=== PATIENT | male | born 1955 | race Caucasian/White ===

== ENCOUNTER 2020-03-16 14:53 | Inpatient (IN) | payer OTHER ==
[~2020-03-16] VITALS: Ht 165.1 cm; Wt 103.0 kg
[2020-03-16 15:01] VITALS: Ht 165.1 cm; Wt 103.0 kg
--- NOTE | 2020-03-16 15:06 | NUR ---
PT HOB ELEVATED FOR SAFETY, DURING POSITION CHANGE PT STS "I'M GOING TO THROW UP." RED EMESIS NOTED APPROX 100ML.
--- NOTE | 2020-03-16 15:13 | NUR ---
PT BIBA FROM [facility] WITH A C/C OF ABD PAIN AND HEMATEMESIS STARTING 2 HRS AGO. REPORT GIVEN FROM FULL CHARGE BOOKKEEPER. STATES PT HAS APPROX 200CC OF HEMATAMESIS BEFORE THEIR ARRIVAL AT [facility]. 4MG OF ZOFRAN AND 500ML OF FLUIDS GIVEN WEIR FISHER. 18G IV STARTED WEIR FISHER IN THE LAC. PT REPORTS HAS BEEN HAVING ABD PAIN X2 WEEKS REPORTS THAT THE HEMATEMESIS JUST STARTED TODAY. PT REPORTS NO HISTORY OF HEMATEMISIS OR GI BLEEDING. PT VOMITED APPROX 100CC OF DARK RED EMESIS UPON ARRIVAL. PT HAS BEEN GIVEN EMESIS BASIN. PT AAO X4 PT COOPERATIVE. DR. GRIFFIN AT BEDSIDE FOR MSE.
--- NOTE | 2020-03-16 15:13 | NUR ---
TWO GUARDS FROM [facility] AT BEDSIDE WITH PT. PT IN HANDCUFFS ON BILATERAL LOWER EXTREMITIES AND ONE UPPER EXTREMITY. GUARD REMOVED LEFT UPPER EXTREMITY HAND CUFF FOR PT TO BE ABLE TO REMOVE MASK IN CASE OF VOMITING.
--- NOTE | 2020-03-16 15:13 | NUR ---
MD GRIFFIN AT BEDSIDE FOR MSE.
--- NOTE | 2020-03-16 15:45 | NUR ---
[facility] GI COCKTAIL ADMINISTERED PT VOMITED AFTER ADMINISTRATION.
[2020-03-16 15:48] LABS: BASOPHIL % 0.7 % (0-2); PLATELET COUNT 226 x10^3mcL (130-400)
[2020-03-16 15:53] LABS: RED CELL DISTRIBUTION WIDTH 15.2 % (11.5-14.5)
[2020-03-16 15:59] LABS: CALCIUM 8.3 mg/dL (8.5-10.1); CARBON DIOXIDE 23.7 mmol/L (21-32); CREATININE SERUM 1.3 mg/dL (0.7-1.3); POTASSIUM SERUM 5.4 mmol/L (3.5-5.1)
[2020-03-16 16:03] LABS: BILIRUBIN TOTAL 0.96 mg/dL (0.20-1.00); TOTAL PROTEIN, SERUM 6.6 g/dL (6.4-8.2)
[2020-03-16 16:04] LABS: ALBUMIN 2.5 g/dL (3.4-5.0)
--- NOTE | 2020-03-16 16:05 | NUR ---
PT TAKEN TO CT.
--- NOTE | 2020-03-16 16:29 | NUR ---
PT VOMITED APPROX 200CC OF DARK RED EMESIS.
--- NOTE | 2020-03-16 16:50 | NUR ---
DR GRIFFIN MADE AWARE OF PTS BP. PER DR. GRIFFIN INFUSE FLUIDS WITH A PRESSURE BAG. PT CONTINUES TO BE CONNECTED TO FULL CM WILL CONTINUE TO MONITOR.
--- NOTE | 2020-03-16 17:17 | NUR ---
PT REPOSITIONED SELF TO RIGHT SIDE FOR COMFORT. PT AAO4, RESP E/U, REMAINS CONNECTED TO FULL CM. EMESIS BAG AT BEDSIDE CONVENIENCE. 2 GUARDS REMAIN AT BEDSIDE.
[2020-03-16] MEDS ORDERED: FORTAMET500 M1 PO (17:24)
[2020-03-16] MEDS ORDERED: ASPIRIN CHILDRE81 MG PO (17:24)
[2020-03-16] MEDS ORDERED: INSULIN SYRING1 EA29 MC (17:25)
--- NOTE | 2020-03-16 18:33 | NUR ---
PT LAYING SUPINE IN A POSITION OF COMFORT. PT REPORTS PAIN IS MUCH BETTER AND STATES NO NAUSEA. PT REPORTS HAS NOT VOMITED AGAIN. PT AAO X4 RESPIRATIONS E/U NO DISTRESS NOTED. PT REMAINS CONNECTED TO FULL CM. WILL CONTINUE TO MONITOR.
[2020-03-16 19:26] LABS: BASOPHIL % 0.2 % (0-2); PLATELET COUNT 171 x10^3mcL (130-400)
[2020-03-16 19:40] LABS: RED CELL DISTRIBUTION WIDTH 15.3 % (11.5-14.5)
--- NOTE | 2020-03-16 19:59 | NUR ---
CALLED REPORT TO SHAWNA HERRMANN TO ASSUME PRIMARY CARE OF PT.
[2020-03-16 20:38] VITALS: BP 112/62
[2020-03-16 21:00] VITALS: BP 116/62
--- NOTE | 2020-03-16 21:14 | NUR ---
8015: TRANSFERRED FROM ER VIA GURNEY, ACCOMPANIED BY ER STAFFS AND 2 GUARDS FROM [facility]. HE'S CUFF ON RIGHT ANKLE PER [facility] PROTOCOL. A/OX4 WITH C/O ABD PAIN 2 DAYS PRIOR THEN VONITTED WITH BLOOD NIXS IN VOMITIOUS. ADMITTED TO ICU FOR OBSERVATION DUE TO LOW BP. DURING INTERVIEW, HE ASKS FOR ICE CHIPS DUE TO THIRSTY WITH NO SIGN OF NAUSAE NOR VOMITTING. CONTINUE MONITORING.
--- NOTE | 2020-03-16 22:00 | NUR ---
SPOKE TO DR. CRUZ WITH NEW ORDERS. NEW ORDERS FOR PROTONIX AND SANDOSTATIN DRIP NOTED AND CARRIED OUT. WILL CONTINUE TO MONITOR.
[2020-03-17] VITALS (7 sets, daily range): BP systolic 96–129; BP diastolic 51–92
[2020-03-17 05:38] LABS: CALCIUM 8.2 mg/dL (8.5-10.1); CARBON DIOXIDE 26.3 mmol/L (21-32); CHLORIDE SERUM 109 mmol/L (98-107); GFR1 > 60 mL/min; GLUCOSE SERUM 129 mg/dL (74-106); POTASSIUM SERUM 4.7 mmol/L (3.5-5.1); SODIUM SERUM 141 mmol/L (136-145)
[2020-03-17 06:25] LABS: BASOPHIL % 0.3 % (0-2); PLATELET COUNT 140 x10^3mcL (130-400)
--- NOTE | 2020-03-17 06:41 | NUR ---
nO FEVER, VITAL SIGN STABLE. NO NAUSEA, NOR VOMITTING. SMALL PIECE OF DARK RED REGULAR STOOL. HB DECREASE FROM 8.9 TO 8.1, ? DILUTE, ON IV FLUID 100 ML/H. NPO FOR EGD THIS AM, CONSENT ON CHART. NO S/S HYPOGLYCEMIA.
--- NOTE | 2020-03-17 07:40 | NUR ---
PT RECD SLEEPING WELL, NO DISTRESS, REMAINS IN FULL CUSTODY OF [facility]IM OFFICERS, THEY ALSO REMAIN AT BEDSIDE; PT TO HAVE EGD DONE THIS AM, CALL RECD [facility] GI SPREADER, REPORT GIVEN, UPDATED CORRECTIONAL OFFICERS AT BEDSIDE WELL PT, VERBALIZED UNDERSTANDING
--- NOTE | 2020-03-17 07:45 | NUR ---
ARRIVAL OF GI LAB PERSONNEL AND EQUIPTMENT; ALL CONSENT SIGNED AND VERIFIED; WAITING ON GI PROVIDER; PT ALSO ASSESS BY ICU ATTENDING; PT CONTINUES ON IV DRIPS PER PREVIOUS ORDERS
--- NOTE | 2020-03-17 08:05 | NUR ---
DR WEBBER AT BEDSIDE ALL UPDATES PROVIDED AT THIS TIME. NO NEW ORDERS. PATIENT STABLE WILL CONTINUE TO MONITOR.
--- NOTE | 2020-03-17 08:40 | NUR ---
GI PROVIDER HERE FOR PROCEDURE; GI LAB PERSONNEL IN ROOM, ALL EQUIPTMENT SET UP
--- NOTE | 2020-03-17 09:10 | NUR ---
EDG COMPLETED, PROVIDER GIVEN PRELIMINARY REPORT OF: LARGE BLOOD CLOT NOTED, AND REPEAT EGD 03/19/20, ADDITIONAL ORDERS RECD FOR CT AND BLOOD WORK
--- NOTE | 2020-03-17 09:25 | NUR ---
PT RECOVERED WELL, PER NURSING REPORT, PT HAS LARGE BLOOD CLOT TO PROXIMAL STOMACH, PROVIDER UNABLE TO SUCTION OUT, WILL ALLOW NORMAL DIGESTION, GRADE II VERICIES TO JUCTION, NO ACTIVE BLEEDING AT THIS TIME; CT CALLED FOR PT PREP, INSTRUCTED TO WAIT UNTIL PT IS MORE ALERT AND MORE RECOVERED FROM SEDATION OF: FENTANYL 100MCG/VERSED 5MG; CHARGE AWARE, CORRECTIONAL OFFICERS UPDATE
--- NOTE | 2020-03-17 09:54 | NUR ---
CALL PLACED TO PRIMARY PHYSICIAN REGARDING IVP PROTONIX, INTRUCTED TO CANCEL IVP AND CONT ON IV DRIP OF SAME MEDICATION; PROVIDER ALSO UPDATED REGARDING FINDINGS OF EGD AND INTRUCTED TO KEEP PT 'ICU' STATUS FOR NOW UNTIL OTHER PROCEDURES AND RESULTS HAVE BEEN REVIEWED; CHARGE UPDATED
--- NOTE | 2020-03-17 11:17 | NUR ---
DR BLANCHARD AT BEDSIDE, ALL UPDATES PROVIDED. HE STS FOR PATIENT TO REMAIN IN ICU AT THIS TIME, AND UPDATE HIM ON LABS AND HE WILL DECIDE IF PATIENT NEEDS TO BE TRANSFERRED UPSTAIRS. OF NOW PATIENT TO REMAIN IN ICU. PATIENT STABLE WILL CONTINUE TO MONITOR. PRIMARY RN MADE AWARE.
--- NOTE | 2020-03-17 14:44 | NUR ---
PT COMPLETED THREE PHASE CT, DEDRA WELL, HAD 1 EPISODE OF N/V, NO BLOOD NOTED; PT ESCORTED TO CT AND RTN WITH CORRECTIONAL OFFICERS, NURSE AND CHAIR INSPECTOR AND LEVELER; PT RTN W/O INCIDENT, NO BSC FOR BM
[2020-03-17 15:31] LABS: BASOPHIL % 0.3 % (0-2); PLATELET COUNT 155 x10^3mcL (130-400)
[2020-03-17 15:32] LABS: RED CELL DISTRIBUTION WIDTH 15.8 % (11.5-14.5)
--- NOTE | 2020-03-17 16:01 | NUR ---
PT RESTING WELL, HAD MODERATE SIZE BM, DARK/BLACK, FORMED; PT RTND TO BED W/O INCIDENT, NEW CORRECTIONAL OFFICERS AT BEDSIDE; PT LABS RTND, PT CAN BE TRANSFERRED TO LOWER LEVEL OF CARE; CONT TO MONITOR
--- NOTE | 2020-03-17 16:51 | NUR ---
DR BLANCHARD CALLED AT THIS TIME FOR UPDATES ON PATIENT LABS. NO ANSWER AT THIS TIME. VOICE MAIL LEFT. WILL AWAIT CALL BACK AND CONTINUE TO MONITOR PATIENT.
--- NOTE | 2020-03-17 17:15 | NUR ---
DR BLANCHARD CALLED BACK AT THIS TIME AND GAVE OK FOR PATIENT TO TRANSFER TO TELE. WILL CARRY OUT ORDERS AT THIS TIME.
--- NOTE | 2020-03-17 17:33 | NUR ---
TELE CALLED AT THIS TIME, NO BEDS AVAILABLE AT THIS TIME FOR PATIENT TRANSFER. REFERRAL AGENT JOHNY MADE AWARE. PATIENT STABLE WILL CONTINUE TO MONITOR. PRIMARY RN MADE AWARE.
--- NOTE | 2020-03-17 18:11 | NUR ---
BLOOD IS AVAILABLE FOR PT, PM MEAL GIVEN, PT DEDRA 100%; CONSENT SIGNED; IV LINES CHANGED TO ALLOW FOR BLOOD ADMINISTRATION; PT AWARE AND PREPARED
--- NOTE | 2020-03-17 20:35 | NUR ---
received report on pt sharon Pearce RN. PT IS AWAKE ,ALERT AND ORIENTED X4. PT HAS TWO ORANGE PICKING SUPERVISOR N ATTENDANCE. HE IS CHEERFUL ENOUGH ON INTRODUCTION. PT DOESN'T HAVE A PULSE OX ON .PLACE PUKLSE OX ON HISLEFT HAND 96% ON ROOM AIR. NO COMPLAINT OF PAIN. HE'S NPO FOR POSSIBLE PROCEDURE IN THE AM.
[2020-03-18] VITALS (7 sets, daily range): BP systolic 100–149; BP diastolic 51–72
--- NOTE | 2020-03-18 00:36 | NUR ---
2300 OFFICER PUT THE CALL LIGHT ON WENT INTO THE ROOM ASWERING THE LIGHT FOUND PT WITH BLOOD IN THE BED. UPON INSPECTION FOUND PT HAD ACCIDENTALLY PULLED OU HIS IV. YESENIA BULLOCK NURSE CHANGED THE BED AND REPLACE THE IV WITH A 20 GUAGE ON THE LEFT AC.
--- NOTE | 2020-03-18 00:40 | NUR ---
0000M PT'S LIGHT ON AGAIN AND HE REQESTED A VOMIT BAG BECAUSE HE FELT NAUSEA AND NEED TO VOMIT. BAG GIVEN AND PT SOUNDED IF HE WAS VOMITING A LOT BUT HE JUST HAD MASSIVE DRY HEAVES. [id number] MG IVP GIVEN AND AMBIEN WAS GIVEN TO HELP PT SLEEP.
--- NOTE | 2020-03-18 00:48 | NUR ---
[address] GRIJALVA R/T PT'S ELEVATED BLOOD PRESSURE. PT WAS GIVEN COREG AT 2100 BUT THE BLOOD PRESSURE CONTIUED TO TREND UPWARD, NOW 188 SYSTOLIC WITH A MAP OF 130. DR. GRIJALVA ORDERED HYDRALIZINE 20 MG IV. SEARCHED ED AND 2ND FLOOR BUT NO IV HYDRALIZINE AVAILABLE IN THE AREAS SEARCHED. FINALLY GAVE THE PT .I MG OF CATTAPRESS AT 2330. AT 0050 BP IS DOWN TO 147/71.
--- NOTE | 2020-03-18 02:21 | NUR ---
PT UP TO THE BEDSIDE COMMODE HAD A LARGE FORMED BRPWN STOOL NO BLOOD NOTE ON THE TISSUE,
[2020-03-18 05:29] LABS: ALKALINE PHOSPHATASE 181 U/L (46-116); ALT/SGPT 126 U/L (16-63); AST/SGOT 135 U/L (15-37); BILIRUBIN TOTAL 0.7 mg/dL (0.20-1.00); CARBON DIOXIDE 22.1 mmol/L (21-32); CHLORIDE SERUM 112 mmol/L (98-107); CREATININE SERUM 1.1 mg/dL (0.7-1.3); GFR1 > 60 mL/min; GLUCOSE SERUM 249 mg/dL (74-106); POTASSIUM SERUM 4.6 mmol/L (3.5-5.1); SODIUM SERUM 143 mmol/L (136-145)
[2020-03-18 05:44] LABS: BASOPHIL % 0.2 % (0-2); PLATELET COUNT 163 x10^3mcL (130-400); RED CELL DISTRIBUTION WIDTH 14.1 % (11.5-14.5)
[2020-03-18 05:51] LABS: ALBUMIN 2.3 g/dL (3.4-5.0)
--- NOTE | 2020-03-18 07:30 | NUR ---
RECEIVED THIS PT AWAKE AND ASKING FOR ICE CHIPS C/O FEELING MOUTH DRY , REPORTED BY OUTGOING RN NPO FOR ENDOSCOPY PROCEDURE TODAY AND PT IS DIABETIC AND AM BLOOD SUGAR IS 237 AND NO COVERAGE GIVEN DUE TO PT NPO . PT AWARE OF REPEAT ENDOSCOPIC PROCEDURE BUT DOES NOT KNOW THE REASON . OUTGOING RN REPORTED CONSENT HAS BEEN SIGNED 03/16/20 THE FIRST PROCEDURE THAT WAS DONE .
--- NOTE | 2020-03-18 10:15 | NUR ---
GI RISK REDUCTION COUNSELORMONTEZ ELAM CALLED AND DILIPAR REPORTED AND NEW CONSENT OBTAINED AND WELL CONSCIOUS SEDATION CONSENT , GI LAB CREW HERE AT DEPT AND AWAITING FOR MD CRUZ . ACCUCHECK BLOOD SUGAR 274 MG /DL .
[2020-03-18 10:31] LABS: BASOPHIL % 0.3 % (0-2); PLATELET COUNT 159 x10^3mcL (130-400)
[2020-03-18 10:37] LABS: RED CELL DISTRIBUTION WIDTH 15.6 % (11.5-14.5)
[2020-03-18 10:41] LABS: CALCIUM 7.9 mg/dL (8.5-10.1); CARBON DIOXIDE 22.5 mmol/L (21-32); CHLORIDE SERUM 111 mmol/L (98-107); CREATININE SERUM 1.1 mg/dL (0.7-1.3); GFR1 > 60 mL/min; GLUCOSE SERUM 315 mg/dL (74-106); POTASSIUM SERUM 4.7 mmol/L (3.5-5.1); SODIUM SERUM 143 mmol/L (136-145)
--- NOTE | 2020-03-18 11:39 | NUR ---
MD CRUZ HERE AT DEPT WITH GI LAB CREW X 3 AT BEDSIDE TO ASSIST MD TUTTLE ARE OF LATEST H/H LEVEL AND BLOOD TRANSFUSION CONSENT OBTAINED . SEE GI LAB NOTES FOR DETAILS , PLAN TO DOWNGRADE PT TO TELEMETRY POST OP PROCEDURE .
[2020-03-18 12:40] LABS: rbc morphology (normal/abnorm) NORMAL (NORMAL)
--- NOTE | 2020-03-18 13:05 | NUR ---
PT INFORMED ABOUT DOWNDRADE PLAN TO TELE 230-B VIA BED AND MD CRUZ ORDER TO CHANGE IVF AND TO KEEP PT NPO DUE TO CLIP AND EPI INJECTION POST ENDOSCOPY.SBAR REPORTED TO MONTEZ KEMP AND ACCEPTED PT .
--- NOTE | 2020-03-18 13:38 | NUR ---
RECEIVED PT FROM ICU, PT STILL SEDATED, DIFFICULT TO AROUSE. IVS TO RFA AND LFA IN PLACE, INTACT. ABDOMEN SOFT/DISTENDED. VS: 114/65 (64), 97.8, ON RA O2 97, RR 20. PERIPHERAL PULSES PALPABLE, SKIN PALE, COOL. SKIN INTACT. CARE ENDORSE TO SERENA HERRMANN.
--- NOTE | 2020-03-18 16:47 | NUR ---
SPOKE TO DR BLANCHARD AND REPORTED TO HIM PT'S LOW HGB LEVEL. DR BLANCHARD SAID TO GIVE 2 UNITS OF PRBC AND TO GIVE LASIX 20MG AFTER EACH TRANSFUSION. NOTED AND CARRIED OUT.
--- NOTE | 2020-03-18 18:17 | NUR ---
SPOKE TO DR BLANCHARD ABOUT PATIENT'S BLOOD SUGAR BEING 377. DR BLANCHARD SAID ITS OKAY TO GIVE INSULIN ACCORDING TO HIS SCALE D/T PATIENT RECEIVING D5 1/2 NS.
--- NOTE | 2020-03-18 19:06 | NUR ---
NO ACUTE DISTRESS DURING SHIFT. WILL ENDORSE CARE TO PM SHIFT FOR CONTINUITY OF CARE.
--- NOTE | 2020-03-18 19:40 | NUR ---
RECEIVED PT ASLEEP BUT EASILY AROUSABLE.GUARDS AT BEDSIDE .DENIES CHESTPAIN.BP 111/64 MMHG,HR 101.FOR BLOOD TRANSFUSION OF 2 UNITS PRBC TONIGH AND PT FULLY AWARE.BM TODAY TO DARK BROWNISH STOOL PER PT.WILL CONTINUE TO MONITOR.
--- NOTE | 2020-03-18 20:20 | NUR ---
STARTED IST UNIT PRBC VERIFIED WITH ANOTHER RN.BLOO # [id number].VSS.BP 111/64 MMHG,HR 101,TEMP 98.8F,O2 SAT 100%.WILL CONTINUE TO MONITOR.
--- NOTE | 2020-03-18 20:35 | NUR ---
NO ADVERSE REACTION FROM BLOOD TRANSFUSION.VSS.WILL CONTINUE TO MONITOR.
--- NOTE | 2020-03-18 23:00 | NUR ---
IST UNIT BLOOD TRANSFUSION COMPLETED AND TOLERATED WELL.VSS.BP101/58 MMHG,HR 93.O2 SAT 100%.TEMP 98.8F.ASSISTED TO BR.BM X1 TO BROWNISH COLORED STOOL.ROCEPHIN IV ATB ADMINISTERED.WILL CONTINUE TO MONITOR.
--- NOTE | 2020-03-18 23:35 | NUR ---
2ND UNIT PRBC STARTED WITNESSED BY ANOTHER NURSE.BLOOD # [id number].VSS.BP 101/58 MMHG,HR 98,TEMP 98.3F,O2 SAT @ 100%.WILL CONTINUE TO MONITOR.
--- NOTE | 2020-03-19 01:40 | NUR ---
COMPLETED 2ND UNIT PRBC AND WELL TOLERATED.NO ADVERSE REACTION NOTED.VSS.BP 120/76 MMHG,HR 92,TEMP 98.5F,O2SAT @ 98%.WILL CONTINUE TO MONITOR.
[2020-03-19 04:34] VITALS: BP 133/75
--- NOTE | 2020-03-19 04:43 | NUR ---
PT SLEPT WELL.NO ADVERSE REACTION FROM 2 UNITS PRBC GIVEN LAST NIGHT.NO ASE NOTED FROM ROCEPHIN IV ATB.PROTONIX DRIP @ 10ML/HR INFUSING.NO N/V NOTED.NO HEMATEMESIS.BM X3 TO BROWNISH COLORED STOOL.GUARDS AT BEDSIDE.ALL NEEDS MET.WILL CONTINUE TO MONITOR.
--- NOTE | 2020-03-19 07:30 | NUR ---
PATIENT IS A&OX4, FOLLOWS COMMANDS AND COOPERATES WELL. TELE PATIENT, DENIES CHEST PAIN. PERIPHERAL PULSES PALPABLE W/ NO SIGNS OF EDEMA. LUNG SOUNDS CTA BILATERALLY, ON RA, O2 SAT 96%, DENIES SOB. NORMOACTIVE BSX4, ABD SOFT AND DISTENDED, DENIES ABD PAIN AT THIS TIME. VOIDS USING RESTROOM. AMBULATORY. IV SITE IS INFUSING AT THIS TIME. DENIES ANY OTHER PAIN OR DISCOMFORT AT THIS TIME. GUARDS ARE PRESENT OUTSIDE OF THE PATIENT'S DOOR AND ARE ABLE TO SEE PATIENT. WILL CONTINUE TO MONITOR PATIENT.
[2020-03-19 07:34] VITALS: BP 145/85
[2020-03-19 07:39] LABS: BASOPHIL % 0.3 % (0-2); PLATELET COUNT 147 x10^3mcL (130-400)
[2020-03-19 07:57] LABS: RED CELL DISTRIBUTION WIDTH 15.5 % (11.5-14.5)
[2020-03-19 08:07] LABS: CALCIUM 8.5 mg/dL (8.5-10.1); CARBON DIOXIDE 23.1 mmol/L (21-32); CHLORIDE SERUM 110 mmol/L (98-107); CREATININE SERUM 1.2 mg/dL (0.7-1.3); GFR1 > 60 mL/min; GLUCOSE SERUM 299 mg/dL (74-106); POTASSIUM SERUM 4.3 mmol/L (3.5-5.1); SODIUM SERUM 141 mmol/L (136-145)
[2020-03-19 12:03] VITALS: BP 141/66
--- NOTE | 2020-03-19 13:57 | NUR ---
PATIENT DENIES ANY BLOODY EMESIS AT THIS TIME. PATIENT DENIES ANY PAIN OR DISCOMFORT WELL. WILL CONTINUE TO MONITOR.
[2020-03-19 16:05] VITALS: BP 135/75
--- NOTE | 2020-03-19 18:53 | NUR ---
PATIENT IS CURRENTLY RESTING IN BED AT THIS TIME. PATIENT DENIES ANY PAIN OR DISCOMFORT. NO HEMATEMESIS NOTED.
--- NOTE | 2020-03-19 19:45 | NUR ---
PT RECEIVED LYING IN BED ON R SIDE. A/OX4, CALM AND COOPERATIVE. RESPIRATIONS EVEN, UNLABORED, CTA, RA, PT DENIES SOB. TELE 9, SR HR 99. REPORTS LIGHTHEADEDNESS WHEN AMBUALTING TO RESTROOM. PT EDUCATED TO AMBUALTE WITH ASSIST FOR FALL PRECAUTION, VERBALIZED UNDERSTANDING. ABD SOFT AND ROUND. PT REPORTS NAUSEA AND DRY HEAVING. LBM 10/13, LOOSE, DENIES BLACK/BLOODY STOOL. DENIES URINARY ISSUES. GENERALIZED WEAKNESS. SKIN INTACT. IV RUNNING D5 1/2NS @ 60ML/HR + PROTONIX @ 10ML/HR, PATENT, NO COMPLICATIONS TO SITE. BED IN LOWEST POSITION, SIDE RAILS X 2, CALL LIGHT WITHIN REACH.
[2020-03-19 20:24] VITALS: BP 122/54
--- NOTE | 2020-03-20 01:34 | NUR ---
PT LYING IN BED SLEEPING ON L SIDE. RESPIRATIONS UNLABORED. NON-VERBAL PAIN INDICATORS ABSENT. IV R HAND RUNNING D5 1/2NS@60ML/HR + PROTONIX@10ML/HR, PATENT, NO COMPLICATIONS TO SITE. BED IN LOWEST POSITION, SIDE RAILS X 2, CALL LIGHT WITHIN REACH
[2020-03-20 05:06] VITALS: BP 122/68
--- NOTE | 2020-03-20 06:18 | NUR ---
PT ALERT AND ORIENTED. PT SLEPT THROUGHOUT MOST OF THE NIGHT. NO SIGNS OF SOB, DIZZINESS, OR PAIN NOTED OR REPORTED. PT EXPERIENCED N/V X 1, NO BLEEDING NOTED. PHENGREN ADMISNISTERED ORDERED X 1, EFFECTIVE. NO BM DURING SHIFT. NO URINARY ISSUES. IV R HAND RUNNING D5 1/2 NS @50ML/HR AND PROTONIX @ 10ML/HR, PATENT, NO COMPLICATIONS TO SITE. TELE 9, SR. NO S/S HYPO/HYPERGLYCVEMIA. BED IN LOWEST POSITON, SIDE RAILS X 2, CALL LIGHT WITHIN REACH
[2020-03-20 07:17] LABS: CARBON DIOXIDE 24.9 mmol/L (21-32); CHLORIDE SERUM 110 mmol/L (98-107); GFR1 > 60 mL/min; GLUCOSE SERUM 258 mg/dL (74-106); SODIUM SERUM 144 mmol/L (136-145)
[2020-03-20 07:21] LABS: BASOPHIL % 0.3 % (0-2); PLATELET COUNT 149 x10^3mcL (130-400)
[2020-03-20 07:22] LABS: RED CELL DISTRIBUTION WIDTH 16.3 % (11.5-14.5)
--- NOTE | 2020-03-20 07:30 | NUR ---
RECEIVED PT FROM ORTHO RN, PT SITTING UP IN THE BED. ASSESSED AND WILL DOCUMENT. DENIES ANY PAIN THIS TIME. SAFTEY PRECAUTIONS ARE IN PLACE. PT SAID HE IS HAVING LOOSE DARK STOOL. NO N/V THIS TIME. WILL CONTINUE MONITOR.
[2020-03-20 08:50] VITALS: BP 105/71
--- NOTE | 2020-03-20 09:34 | NUR ---
PT C/O MID CHEST PAIN, SHARP INTERMITTENT PAIN PER PT, 12/14. ADMINISTERED MS IV 1MG ORDERED. WILL MONITOR.
--- NOTE | 2020-03-20 10:04 | NUR ---
PT IS SLEEPING THIS TIME. STABLE. NO SIGNS OF PAIN.
[2020-03-20 12:21] VITALS: BP 115/66
--- NOTE | 2020-03-20 13:00 | NUR ---
PT RESTING IN BED COMFORTABLY, TOLERATED FULL LIQUID DIET. NO N/V. NO LOOSE STOOL THIS TIME.
--- NOTE | 2020-03-20 16:00 | NUR ---
PT RESTING IN BED COMOFRTABLY. WHEN PT GETS UP TO USE RESTROOM HR UP TO 130 FOR FEW MIN, AFTER PT GO BACK TO BED, HR DOWN TO 90'S. DENIES CHEST PAIN. STABLE.
[2020-03-20 16:58] VITALS: BP 133/73
--- NOTE | 2020-03-20 19:05 | NUR ---
PT RESTING IN BED COMFORTABLY, STABLE. GAVE REPORT TO EX CHEF NURSE.
--- NOTE | 2020-03-20 19:40 | NUR ---
RECEIVED REPORT FROM DAY SHIFT RN. PT RESTTING IN BED WITH EYES CLOSED. EASILY AROUSABLE WITH VERBAL STIMULI. ORIENTED X4. NO SOB ON ROOM AIR. NO C/O N/V/ABD PAIN AT THIS TIME. IV TO RT HAND, PATENT AND INTACT. SAFETY MEASURES IN PLACE. BED IN LOWEST POSITION. SIDE RAILS UP X2. INSTRUCTED PT TO CALL IF ASSISTANCE IS NEEDED. CALL LIGHT WITHIN REACH. CIM GUARDS X2 AT BEDSIDE.
[2020-03-20 21:15] VITALS: BP 122/66
--- NOTE | 2020-03-21 01:23 | NUR ---
PT RESTING WITH EYES CLOSED. BREATHING EVEN AND UNLABORED ON ROOM AIR. NO DISTRESS NOTED. CALL LIGHT WITHIN REACH. CIM GUARDS X2 AT BEDSIDE.
[2020-03-21 05:03] VITALS: BP 112/67
--- NOTE | 2020-03-21 06:48 | NUR ---
PT RESTED IN INTERVALS THROUGHOUT SHIFT. NO SOB ON ROOM AIR. C/O ABD PAIN /. MORPHINE GIVEN X1. NO C/O N/V. IV TO R HAND, INTACT. PT STATES LOOSE BM X2, BROWN STOOL. GENERALIZED WEAKNESS NOTED. INSTRUCTED PT TO ASK FOR ASSISTANCE IF HE HAS TO GET UP. SAFETY MEASURES MAINTAINED. ALL NEEDS ATTENDED TO. CALL LIGHT WITHIN REACH. CIM GUARDS X2 AT BEDSIDE. WILL ENDORSE CONTINUITY OF CARE TO ONCOMING RN.
[2020-03-21 06:50] LABS: BASOPHIL % 0.5 % (0-2); PLATELET COUNT 164 x10^3mcL (130-400)
[2020-03-21 07:08] LABS: RED CELL DISTRIBUTION WIDTH 16.1 % (11.5-14.5)
[2020-03-21 07:13] LABS: CALCIUM 8.3 mg/dL (8.5-10.1); CHLORIDE SERUM 107 mmol/L (98-107); GFR1 > 60 mL/min; GLUCOSE SERUM 265 mg/dL (74-106); POTASSIUM SERUM 3.5 mmol/L (3.5-5.1); SODIUM SERUM 140 mmol/L (136-145)
--- NOTE | 2020-03-21 07:30 | NUR ---
RECEIVED PT FROM FERMENTATION ENGINEER. PT IS SLEEPING THIS TIME. STABLE. DENIES ANY PAIN. NO N/V THIS TIME. SAFTEY PRECAUTIONS ARE IN PLACE. WILL MONITOR. TOÑO AT BEDSIDE.
[2020-03-21 07:51] VITALS: BP 115/59
--- NOTE | 2020-03-21 11:00 | NUR ---
INFORMED ABOUT PT TOLERATED FULL LIQUID. HE SAID [facility]. PT IS STABLE. DENIES ANY PAIN. WILL MONITOR.
[2020-03-21 11:40] VITALS: BP 122/70
--- NOTE | 2020-03-21 12:45 | NUR ---
PT IS SITTING UP AND EATING LUNCH WELL. NO N/V. DENIES ANY PAIN. STABLE. GAURDS AT BEDSIDE.
--- NOTE | 2020-03-21 16:00 | NUR ---
PT RESTING IN BED COMFORTABLY. DENIES ANY PAIN. STABLE. GAURDS AT BEDSIDE.
[2020-03-21 16:07] VITALS: BP 98/60
--- NOTE | 2020-03-21 19:05 | NUR ---
PT REMAINS STABLE. DENIES ANY PAIN. TOÑO AT BED SIDE. GAVE REPORT TO JEWELRY FACER NURSE.
--- NOTE | 2020-03-21 19:30 | NUR ---
RECEIVED REPORT FROM DAY SHIFT RN. PT RESTING IN BED. AA&O X4. NO SOB ON ROOM AIR. NO C/O N/V/ABD PAIN AT THIS TIME. NO DISTRESS NOTED. IV TO RT HAND, SALINE LOCKED. SAFETY MEASURES IN PLACE. CALL LIGHT WITHIN REACH. GUARDS X2 AT BEDSIDE.
[2020-03-21 20:51] VITALS: BP 105/57
[2020-03-22 05:00] VITALS: BP 110/45
--- NOTE | 2020-03-22 06:30 | NUR ---
PT RESTED IN INTERVALS DURING SHIFT. NO SOB ON ROOM AIR. NO C/O N/V/ABD PAIN. PT AMBULATES TO THE BATHROOM. PT HAD SMALL AMOUNT OF LOOSE BROWN STOOL X1. MILD GENERALIZED WEAKNESS NOTED. NO ACTIVE BLEEDING NOTED. IV TO LFA, PATENT AND INTACT. SAFETY MEASURES MAINTAINED. CALL LIGHT WITHIN REACH. CIM GUARDS X2 AT BEDSIDE. WILL ENDORSE CONTINUITY OF CARE TO DAY SHIFT RN.
[2020-03-22 07:11] LABS: CALCIUM 8.3 mg/dL (8.5-10.1); CARBON DIOXIDE 24.8 mmol/L (21-32); CHLORIDE SERUM 108 mmol/L (98-107); GFR1 > 60 mL/min; GLUCOSE SERUM 181 mg/dL (74-106); POTASSIUM SERUM 4.5 mmol/L (3.5-5.1); SODIUM SERUM 141 mmol/L (136-145)
--- NOTE | 2020-03-22 07:34 | NUR ---
RECEIVED PATIENT FROM MOTNEZ PAIZ. PATIENT CURRENTLY SLEEPING, NO SIGNS OF DISTRESS, SOB, OR PAIN. WILL SPEAK WITH PATIENT ONCE AWAKE DURING MORNING ROUNDS. CORRECTIONS OFFICERS NEAR THE DOOR.
[2020-03-22 07:45] LABS: BASOPHIL % 0.3 % (0-2); PLATELET COUNT 182 x10^3mcL (130-400)
--- NOTE | 2020-03-22 08:14 | NUR ---
PATIENT NOW AWAKE, SEATED AT BEDSIDE. DENIES NAUSEA OR VOMITTING. ABDOMEN IS ROUND AND TENDER UPON PALPATION. SPOKE WITH PATIENT ABOUT PLAN OF CARE TODAY INCLUDING MEDICATIONS AND IV ANTIBIOTICS AND PATIENT AGREES. WILL WAIT FOR DR BLANCHARD TO ARRIVE AND SEE PATIENT WELL GI SPECIALIST. CALL LIGHT IN REACH, GUARDS AT BEDSIDE.
[2020-03-22 08:17] LABS: RED CELL DISTRIBUTION WIDTH 16.7 % (11.5-14.5)
[2020-03-22 08:48] VITALS: BP 119/70
[2020-03-22 12:07] VITALS: BP 119/70
[2020-03-22 12:41] VITALS: BP 123/66
[2020-03-22 14:59] VITALS: BP 112/62
--- NOTE | 2020-03-22 15:27 | NUR ---
DR WRIGHT IN TO SEE PATIENT. ORDERED IV LASIX TO BE GIVEN, PATIENT COMPLAINING ABOUT ABDOMINAL DISTENTION. DR WRIGHT STATES PATIENT IN NEED OF SUPPORTIVE CARE AND RECOMMEND ASCITES EVAL, ORDER PLACED. DR BLANCHARD HAD ALREADY PLACED DISCHARGE ORDER AND FINANCIAL SALES ADVISOR CALLED FOR TRANSPORT. DISCHARGE ORDERS AND PACKET GIVEN TO CORRECTIONS OFFICERS AND SIGNATURES OBTAINED. CHARGE NURSE ROBERTO STATES TO SEE IF ASCITES EVAL CAN BE DONE BEFORE PATIENT LEAVES. SPOKE WITH ULTRASOUND AND THEY STATED PATIENT THERE ARE TWO STAT ORDERS IN ED AT THIS TIME. [facility] HAS ARRIVED AND PATIENT ESCORTED DOWNSTAIRS. NO ASCITES EVAL AT THIS TIME. TELE REMOVED AND RETURNED TO [facility], SIGNATURES OBTAINED, IV LASIX GIVEN, IV CATHETER REMOVED AND INTACT.
== END 2020-03-22 15:15 | disposition other institution (70) | DRG 368 ==
LOC: ED 14:53 → DU 17:02 → IC 17:02 → DU 03-18 13:37
PROVIDERS: Emergency Medicine; Internal Medicine; ADMIT Internal Medicine; ATTEND Internal Medicine
PROC: 0DJ08ZZ Inspection of Upper Intestinal Tract, Via Natural or Artificial Opening Endoscopic (ICD-10-PCS; principal; 2020-03-17 08:15)
PROC: 30233N1 Transfusion of Nonautologous Red Blood Cells into Peripheral Vein, Percutaneous Approach (ICD-10-PCS; 2020-03-18 11:15)
DX: I85.01 Esophageal varices with bleeding (principal); I81 Portal vein thrombosis; Z68.41 Body mass index [BMI] 40.0-44.9, adult; N17.9 Acute kidney failure, unspecified; E87.1 Hypo-osmolality and hyponatremia; I10 Essential (primary) hypertension; E78.00 Pure hypercholesterolemia, unspecified; E66.9 Obesity, unspecified; Z20.828 Contact with and (suspected) exposure to other viral communicable diseases; I95.9 Hypotension, unspecified; E87.5 Hyperkalemia; K74.60 Unspecified cirrhosis of liver; Z79.899 Other long term (current) drug therapy; Z79.82 Long term (current) use of aspirin; Z79.891 Long term (current) use of opiate analgesic; E11.65 Type 2 diabetes mellitus with hyperglycemia; Z79.84 Long term (current) use of oral hypoglycemic drugs
CPT/HCPCS: 43235; 82962; 97116-GP; 97530-GP; C9113; G0378; J0171; J0696; J0780; J1200; J1610; J1815; J1940; J1956; J2250; J2270; J2310; J2354; J2405; J2550; J3010; J3490; J7030; J7040; J7042; J7050; P9016; Q9967